=== PATIENT | male | born 1980 | race Caucasian/White ===

== ENCOUNTER 2024-01-13 09:58 | Observation (INO) | payer SELFPAY ==
[~2024-01-13] VITALS: Ht 162.6 cm; Wt 66.7 kg
[2024-01-13] MEDS ORDERED: ATEN25TA PO (10:19)
[2024-01-13 11:22] LABS: AMPHETAMINES LEVEL URINE NEGATIVE (NEGATIVE)
[2024-01-13 11:23] LABS: HEMATOCRIT 45.2 % (42.0-52.0); HEMOGLOBIN 15.6 g/dl (13.5-17.5); MEAN CORPUSCULAR HEMOGLOBIN 32.8 pg (27.0-33.0); MEAN CORPUSCULAR HGB CONC 34.5 g/dl (32.0-36.5); PLATELET COUNT, AUTOMATED 430 10^3/uL (150-450); RED BLOOD COUNT 4.76 10^6/uL (4.30-6.10); WHITE BLOOD COUNT 12.7 10^3/uL (4.0-10.0)
[2024-01-13 11:23] LABS: BARBITURATES URINE NEGATIVE (NEGATIVE); BENZODIAZEPINES URINE NEGATIVE (NEGATIVE); CANNABINOIDS URINE NEGATIVE (NEGATIVE); COCAINE METABOLITE URINE NEGATIVE (NEGATIVE); METHADONE URINE NEGATIVE (NEGATIVE); OPIATES URINE NEGATIVE (NEGATIVE); PHENCYCLIDINE URINE NEGATIVE (NEGATIVE)
[2024-01-13] MEDS: diazePAM 10 MG TAB PO ONE (11:47)
[2024-01-13 11:50] LABS: ETHYL ALCOHOL (ETHANOL) 0.004 % (0.000-0.010); SALICYLATE LEVEL < 3.0 MG/DL (<30)
[2024-01-13 11:52] LABS: ALBUMIN 4.8 G/DL (3.2-5.2); ALKALINE PHOSPHATASE 88 U/L (46-116); ALT/SGPT 26 U/L (7.0-40); AST/SGOT 15 U/L (<34); BILIRUBIN,DIRECT 0.2 MG/DL (<0.4); BILIRUBIN,TOTAL 0.6 MG/DL (0.3-1.2); BLOOD UREA NITROGEN 7 MG/DL (9-23); CALCIUM LEVEL 10.2 MG/DL (8.5-10.1); CARBON DIOXIDE LEVEL 23 MMOL/L (20-31); CHLORIDE LEVEL 103 MMOL/L (98-107); CPK CREATINE PHOSPHOKINASE 448 U/L (46-171); CREATININE FOR GFR 0.75 MG/DL (0.70-1.30); GLOMERULAR FILTRATION RATE > 60.0 (>60); GLUCOSE, FASTING 115 MG/DL (60-100); POTASSIUM SERUM 4.1 MMOL/L (3.5-5.1); SODIUM LEVEL 135 MMOL/L (136-145); TOTAL PROTEIN 7.5 G/DL (5.7-8.2)
[2024-01-13 12:50] LABS: THYROID STIMULATING HORMONE 0.701 uIU/ML (0.55-4.78)
[2024-01-13] MEDS ORDERED: ALPR1TAB3 PO (13:02)
[2024-01-13] MEDS ORDERED: MELA10CA2 PO (13:02)
[2024-01-13] MEDS ORDERED: THERTAB52 PO (13:02)
[2024-01-13] MEDS ORDERED: ZOLO100T PO (13:02)
[2024-01-13] MEDS ORDERED: VALE1CAP3 PO (13:02)
[2024-01-13] MEDS ORDERED: HOME MED LIST COMPLETE! XX SCH (13:05)
[2024-01-13] MEDS ORDERED: MOM 30ML SUSPENSION UDC PO PRN (14:10)
[2024-01-13] MEDS: ALPRAZolam 0.5 MG TAB PO SCH (14:18)
[2024-01-13 15:25] VITALS: BP 135/83; TEMP 98.7; O2SAT 92
[2024-01-13] MEDS: ACETAMINOPHEN TAB 650MG DOSE (2X325MG) PO PRN (15:40)
[2024-01-13 19:35] VITALS: BP 121/75; TEMP 97.6; O2SAT 96
[2024-01-13] MEDS: DOCUSATE SODIUM 100MG CAPSULE PO SCH (21:00)
[2024-01-13 23:20] VITALS: BP 152/85; TEMP 97.4; O2SAT 95
[2024-01-13] MEDS: RAMELTEON 8 MG TAB (ROZEREM) PO SCH (23:33)
[2024-01-14 05:00] VITALS: BP 121/77; TEMP 97.9; O2SAT 98
[2024-01-14 07:44] LABS: HEMATOCRIT 42.3 % (42.0-52.0); HEMOGLOBIN 14.3 g/dl (13.5-17.5); MEAN CORPUSCULAR HEMOGLOBIN 32.9 pg (27.0-33.0); MEAN CORPUSCULAR HGB CONC 33.8 g/dl (32.0-36.5); MEAN CORPUSCULAR VOLUME 97.5 fl (80.0-96.0); PLATELET COUNT, AUTOMATED 374 10^3/uL (150-450); RED BLOOD COUNT 4.34 10^6/uL (4.30-6.10); WHITE BLOOD COUNT 8.2 10^3/uL (4.0-10.0)
[2024-01-14 07:55] VITALS: BP 127/77; TEMP 98.3; O2SAT 97
[2024-01-14 08:13] LABS: CPK CREATINE PHOSPHOKINASE 211 U/L (46-171)
[2024-01-14 08:14] LABS: BLOOD UREA NITROGEN 11 MG/DL (9-23); CALCIUM LEVEL 9.7 MG/DL (8.5-10.1); CARBON DIOXIDE LEVEL 29 MMOL/L (20-31); CHLORIDE LEVEL 106 MMOL/L (98-107); GLOMERULAR FILTRATION RATE > 60.0 (>60); GLUCOSE, FASTING 107 MG/DL (60-100); POTASSIUM SERUM 4.3 MMOL/L (3.5-5.1); SODIUM LEVEL 139 MMOL/L (136-145)
[2024-01-14] MEDS: MULTIVITAMINS/MINERALS THERAP 1 TAB PO SCH (08:18)
[2024-01-14] MEDS: SERTRALINE 100 MG TAB PO SCH (08:18)
[2024-01-14 08:21] VITALS: BP 127/77
[2024-01-14] MEDS: atenoloL 25 MG TAB PO SCH (08:21)
[2024-01-14] MEDS ORDERED: MELA10CA2 PO (10:58)
[2024-01-14] MEDS ORDERED: ALPR1TAB3 PO (10:58)
[2024-01-14] MEDS ORDERED: ZOLO100T PO (10:58)
[2024-01-14 11:45] VITALS: BP 115/71; TEMP 98.5; O2SAT 96
== END 2024-01-14 13:40 | disposition home or self-care (01) ==
LOC: M ED 09:58 → M ED INP 09:59 → M PCU 15:22
PROVIDERS: ADMIT Student in an Organized Health Care Education/Training Program; ATTEND Student in an Organized Health Care Education/Training Program
DX: G40.89 Other seizures (principal); F13.239 Sedative, hypnotic or anxiolytic dependence with withdrawal, unspecified; I10 Essential (primary) hypertension; F41.9 Anxiety disorder, unspecified; Z79.899 Other long term (current) drug therapy